=== PATIENT | male | born 2000 | race Caucasian/White ===

== ENCOUNTER → 2018-01-26 | Outpatient (CLI) | payer BC ==
--- NOTE | 2018-01-26 10:44 | US ---
EXAMINATION TYPE: US abdomen limited DATE OF EXAM: 01/26/2018 COMPARISON: NONE CLINICAL HISTORY: R74.0 Nonspecific elevation of levels of transamin. Elevated bilirubin EXAM MEASUREMENTS: Liver Length: 15.2 cm Gallbladder Wall: 0.3 cm CBD: 0.5 cm Right Kidney: 10.6 x 5.0 x 4.5 cm Technical limitations due to large amount of overlying bowel content Pancreas: Obscured by bowel gas Liver: Mildly attenuating which can be related to mild fatty infiltration. Hypoechoic area near gall bladder bed = 2.3 x 1.1 x 1.6cm, probable fatty sparing. No intrahepatic biliary dilatation is eviden t. Gallbladder: no evidence of stones Evidence for sonographic Whiteside's sign: no CBD: wnl Right Kidney: no evidence of hydronephrosis as visualized IMPRESSION: 1. Mild fatty infiltration liver.
== END | disposition home or self-care (01) ==
LOC: RADUSWWP 07:00
PROVIDERS: ATTEND Family Medicine
DX: K76.0 Fatty (change of) liver, not elsewhere classified (principal)
CPT/HCPCS: 76705